=== PATIENT | male | born 1975 | race Caucasian/White ===

== ENCOUNTER → 2017-07-03 | Emergency (ER) | payer OTHER ==
[~2017-07-03] VITALS: Ht 175.3 cm; Wt 108.9 kg
[~2017-07-03] MED LIST: COZAAR100 MG PO; LOSARTAN-HCTZ1 EAC2 PO; MICARDIS HCT 81 EACH PO; TOPROL XL25 MG PO
== END | disposition home or self-care (01) ==
LOC: ER 18:35
DX: N20.1 Calculus of ureter (principal)

== ENCOUNTER 2017-10-22 18:33 | Emergency (ER) | payer OTHER ==
[~2017-10-22] VITALS: Ht 175.3 cm; Wt 108.9 kg
== END 2017-10-22 22:31 | disposition home or self-care (01) ==
LOC: ER 18:33
DX: M25.561 Pain in right knee (principal)

== ENCOUNTER 2025-02-21 11:46 | Emergency (ER) | payer OTHER ==
[~2025-02-21] VITALS: Ht 175.3 cm; Wt 125.2 kg
[2025-02-21] MEDS ORDERED: VERAPAMIL ER180 MG PO (14:52)
[2025-02-21] MEDS ORDERED: ELIQUIS5 MG PO (14:52)
[2025-02-21] MEDS ORDERED: HYDROCHLOROTHIA25 MG PO (14:53)
[2025-02-21] MEDS ORDERED: METFORMIN HCL500 M3 PO (14:53)
[2025-02-21] MEDS ORDERED: MOUNJARO2.5 MG/0.5 SQ (14:54)
[2025-02-21] MEDS ORDERED: LABETALOL HCL 100 MG/20 ML ML IV ONE (15:30)
[2025-02-21] MEDS ORDERED: ONDANSETRON HCL 2 MG/ML VIAL IV ONE (15:30)
[2025-02-21] MEDS ORDERED: 0.9 % SODIUM CHLORIDE 500 ML IV ONE (15:30)
[2025-02-21] MEDS ORDERED: LACTOBACILLUS ACIDOPHILUS 1 CAP CAP PO ONE ×2 (15:30→15:39)
[2025-02-21] MEDS ORDERED: FAMOTIDINE/PF 20 MG/2 ML VIAL IV ONE (15:30)
[2025-02-21] MEDS ORDERED: ONDANSETRON HCL 2 MG/ML VIAL ONE (15:37)
[2025-02-21] MEDS ORDERED: LABETALOL HCL 100 MG/20 ML ML ONE (15:38)
[2025-02-21] MEDS ORDERED: FAMOTIDINE/PF 20 MG/2 ML VIAL ONE (15:40)
[2025-02-21 16:16] LABS: BASO % 0.1 % (0.1-1.2); EOS # 0.12 (0.04-0.54); EOS % 1.7 % (0.7-7.0); LYMPH # 1.80 (1.18-3.74); LYMPH % 24.9 % (19.3-53.1); MEAN PLATELET VOLUME 9.50 fl (9.4-12.4); MONO # 0.70 (0.24-0.82); MONO % 9.7 % (4.7-12.5); NEUT # 4.59 (1.56-6.13); NEUT % 63.5 % (34.0-71.1); RED CELL DISTRIBUTION WIDTH 13.2 % (11.6-14.4)
[2025-02-21 16:48] LABS: INR 1.11
[2025-02-21 16:58] LABS: ALT/SGPT 52.0 U/L (12-78); AST/SGOT 28.0 U/L (15-37); BILIRUBIN TOTAL 0.69 mg/dL (0.3-1.2); BUN CREA RATIO 22.0 (7.0-25.0); CREATININE SERUM 0.96 mg/dL (0.70-1.30); GFR 83.25; GLOBULINA 5.1 G/DL (2.4-3.5); GLUCOSE FASTING 104.0 mg/dL (65-100); OSMOLALITY SERUM 283.0 MOSM/KG (275-295)
[2025-02-21 18:38] LABS: COVID-19 AG NEGATIVE (NEGATIVE)
[2025-02-21] MEDS ORDERED: INTESTINEX680 M1 PO (20:46)
[2025-02-21] MEDS ORDERED: PEPCID AC20 MG PO (20:46)
[2025-02-21] MEDS ORDERED: ONDANSETRON ODT4 MG PO (20:46)
[2025-02-21] MEDS ORDERED: CIPRO500 MG PO (20:46)
[2025-02-21] MEDS ORDERED: METRONIDAZOLE500 MG PO (20:46)
== END 2025-02-21 21:46 ==
LOC: ER 11:47
PROVIDERS: General Practice
DX: K52.89 Other specified noninfective gastroenteritis and colitis (principal); I10 Essential (primary) hypertension; R11.2 Nausea with vomiting, unspecified; I48.91 Unspecified atrial fibrillation; G47.39 Other sleep apnea; I11.9 Hypertensive heart disease without heart failure; E11.9 Type 2 diabetes mellitus without complications; Z79.84 Long term (current) use of oral hypoglycemic drugs; Z20.822 Contact with and (suspected) exposure to COVID-19